=== PATIENT | female | born 1960 | race Asian ===

== ENCOUNTER 2018-08-09 09:22 | Emergency (ER) | payer BC ==
[~2018-08-09] VITALS: Ht 157.5 cm; Wt 56.8 kg
[~2018-08-09 09:22] MED LIST: PANT-47 PO; ZOF4T PO
[2018-08-09] MEDS ORDERED: loperamide 2mg capsule PO ONE (10:25)
[2018-08-09] MEDS ORDERED: ondansetron 4mg rapidly disintigrating tab PO ONE (10:25)
[2018-08-09] MEDS ORDERED: LOPE-155 PO (10:35)
[2018-08-09] MEDS ORDERED: ONDA4TAB6 PO (10:35)
[2018-08-09 10:55] VITALS: BP 136/85
== END 2018-08-09 10:56 | disposition home or self-care (01) ==
LOC: ER 09:23
DX: R19.7 Diarrhea, unspecified (principal); R11.10 Vomiting, unspecified; R51 Headache
CPT/HCPCS: 99283

== ENCOUNTER 2022-12-21 12:57 | Emergency (ER) | payer SELFPAY ==
[~2022-12-21] VITALS: Ht 157.5 cm; Wt 49.4 kg
[~2022-12-21 12:57] MED LIST changes: +LOPE-190 PO; +ONDA4TAB6 PO
[2022-12-21 13:30] LABS: BASOPHILS # (AUTO) 0.1 X10'3 (0-0.2); BASOPHILS % (AUTO) 0.9 % (0-1); EOSINOPHILS # (AUTO) 0.2 X10'3 (0-0.9); EOSINOPHILS % (AUTO) 3.7 % (0-6); HEMATOCRIT 38.3 % (35.0-45.0); HEMOGLOBIN 12.8 g/dl (12.0-16.0); LYMPHOCYTES # (AUTO) 1.7 X10'3 (1.1-4.8); LYMPHOCYTES % (AUTO) 31.7 % (21-51); MEAN CORPUSCULAR HEMOGLOBIN 33.2 PG (27.0-31.0); MEAN CORPUSCULAR HGB CONC 33.5 g/dL (33.0-36.5); MEAN CORPUSCULAR VOLUME 99.2 FL (78-98); MEAN PLATELET VOLUME 6.6 FL (7.4-10.4); MONOCYTES # (AUTO) 0.4 X10'3 (0-0.9); MONOCYTES % (AUTO) 6.7 % (2-12); PLATELET COUNT 291 X10'3 (140-440); RED BLOOD COUNT 3.86 X10'6 (4.20-5.60); RED CELL DISTRIBUTION WIDTH 12.4 % (11.5-14.5); WHITE BLOOD COUNT 5.4 X10'3 (4.5-11.0)
[2022-12-21 13:36] LABS: CLARITY,URINE CLEAR (Clear); COLOR,URINE STRAW (Yellow); GLUCOSE, URINE NEGATIVE (Neg); KETONES,URINE NEGATIVE (Neg); LEUKOCYTE ESTERASE ,URINE NEGATIVE (Neg); NITRITES, URINE NEGATIVE (Neg); OCCULT BLOOD,URINE NEGATIVE (Neg); PH,URINE 6.5 (4.8-8.0); PROTEIN,URINE NEGATIVE (Neg); UROBILINOGEN,URINE 0.2 E.U/dL (0.2-1.0)
[2022-12-21 13:45] LABS: ALANINE AMINOTRANSFERASE 34 U/L (12-78); ALBUMIN 4.4 G/DL (3.4-5.0); ALBUMIN/GLOBULIN RATIO 1.3 (1.1-1.5); ALKALINE PHOSPHATASE 108 IU/L (46-116); ANION GAP 5 (8-16); ASPARTATE AMINO TRANSFERASE 23 U/L (10-37); BILIRUBIN,TOTAL 0.4 MG/DL (0.1-1.0); BLOOD UREA NITROGEN 20 MG/DL (7-18); BUN/CREATININE RATIO 27.8 (10.0-20.0); CALCIUM 9.2 MG/DL (8.5-10.1); CHLORIDE 102 MMOL/L (99-107); CREATININE 0.72 MG/DL (0.40-0.90); GLUCOSE 115 MG/DL (70-104); POTASSIUM 3.6 MMOL/L (3.5-5.1); SODIUM 140 MMOL/L (135-145); TOTAL CARBON DIOXIDE 33.4 MMOL/L (24-32); TOTAL PROTEIN 7.7 G/DL (6.4-8.2); eGFR 82 ML/MIN
[2022-12-21 13:46] LABS: UA COLLECTION TYPE CLN CATCH MIDSTREAM
[2022-12-21] MEDS ORDERED: normal saline 1000ML IV soln IVB ONE (14:10)
[2022-12-21] MEDS ORDERED: ketorolac trometh. 30mg/ml inj. IV ONE (14:10)
[2022-12-21] MEDS ORDERED: ketorolac tromethamine 15mg/ml inj. IV ONE (14:10)
[2022-12-21] MEDS ORDERED: CEPH-585 PO (15:40)
[2022-12-21] MEDS ORDERED: OXYB-58 PO (15:40)
[2022-12-21 16:08] VITALS: BP 126/73
== END 2022-12-21 16:10 | disposition home or self-care (01) ==
LOC: ER 12:58
DX: R10.32 Left lower quadrant pain (principal); R33.9 Retention of urine, unspecified; R42 Dizziness and giddiness; R07.89 Other chest pain; Z86.2 Personal history of diseases of the blood and blood-forming organs and certain disorders involving the immune mechanism; Z79.899 Other long term (current) drug therapy
CPT/HCPCS: 36415; 71045; 74176; 80053; 81003; 83880; 84484; 85025; 93005; 96374; 99285; J1885; J7030